=== PATIENT | female | born 1975 | race Caucasian/White ===

== ENCOUNTER 2017-10-21 10:16 | Emergency (ER) | payer MEDICAID ==
[2017-10-21] MEDS: CEFTRIAXONE 1 GM INJ IM (15:01)
[2017-10-21] MEDS: LIDOCAINE 1% (MDV) 20 ML INJ SC (15:07)
== END 2017-10-21 15:14 | disposition home or self-care (01) ==
LOC: FTE 10:16
DX: N61.0 Mastitis without abscess (principal)
CPT/HCPCS: 76642; 96372; 99285-25